=== PATIENT | male | born 1960 | race Caucasian/White ===

== ENCOUNTER → 2019-04-04 08:35 | Outpatient (CLI) | payer OTHER, SELFPAY ==
--- NOTE | 2019-04-04 | DI.MRI.S_ITS ---
PROCEDURE: MR KNEE RT WO CON INDICATIONS: Pain in Unspecified knee TECHNIQUE: Noncontrast sagittal PD fast spin echo and T2 fast spin echo with fat saturation, sagittal 3-D FLASH with fat saturation; coronal T1 spin echo and PD fast spin echo with fat saturation, and axial PD fast spin echo with fat saturation through the knee. COMPARISON: None. FINDINGS: Image quality: Excellent. Menisci: The medial extrusion of the medial meniscus is present. There is degenerative fraying of the free edge of the anterior and posterior horn medial meniscus. Amorphous high signal intensity within the anterior horn, body, and posterior horn medial meniscus is present, demonstrating superior and inferior articular surface extension, indicating severe diffuse degenerative tearing. Amorphous high signal intensity within the anterior horn lateral meniscus is present, demonstrating superior articular surface extension, indicating degenerative tearing. Lateral meniscus demonstrates a discoid configuration. Cruciate ligaments: The anterior and posterior cruciate ligaments appear intact. Multiple intercondylar notch cysts are present superiorly. Medial structures: The medial collateral ligament appears intact, but demonstrates mild surrounding T2 signal elevation. Visualized portions of the pes anserinus tendons appear normal. There is moderate T2 signal lesion within the semimembranosus tendon at the tibial insertion site. No abnormal bursal fluid. Lateral structures: The lateral collateral ligament demonstrates moderate T2 signal elevation within its mid and superior aspects. The long and short heads of the biceps femoris tendon appear intact. The popliteus tendon appears normal. Iliotibial band appears normal. Anterior structures: The quadriceps and patellar tendons appear intact. Patellar alignment is normal. No femoral trochlear dysplasia or ventral trochlear prominence. No edema in the infrapatellar fat pad. Bones and cartilage: No bone marrow contusions or fractures. There is severe tricompartmental periarticular osteophyte formation. There is mild subchondral marrow edema within the weightbearing aspects of the medial femoral condyle and medial tibial plateau. Multiple subchondral cysts within the central tibial plateau as well as the posterior weightbearing aspect of the medial and lateral tibial plateaus. Mild subchondral marrow edema and subchondral cyst formation within the lateral patellar facet. Severe articular cartilage loss diffusely overlies the weightbearing aspect of the medial femoral condyle and medial tibial plateau. Mild articular cartilage loss overlies the weightbearing aspects of the lateral femoral condyle and lateral tibial plateau. Moderate articular cartilage loss overlies the lateral patellar facet. Joint space: There is a moderate knee joint effusion containing multiple small intra-articular loose bodies. Trace Alvarado's cyst. Normal appearing synovial plicae are incidentally noted. IMPRESSION: 1. Tricompartmental osteoarthritis with associated articular cartilage loss. 2. Severe degenerative tearing of the medial meniscus. 3. Discoid lateral meniscus with degenerative tearing and anterior horn. 4. Insertional tendinitis of the semimembranosus. 5. Partial-thickness lateral collateral ligament tearing. 6. MCL strain. 7. Knee joint effusion, multiple small intra-articular loose bodies, and trace Alvarado's cyst. Dictated by: Anna Sims M.D. on 04/06/2019 at 8:52 Approved by: Anna Sims M.D. on 04/06/2019 at 8:57
== END ==
PROVIDERS: Visit Provider Family Medicine
DX: M25.561 Pain in right knee (principal); M17.11 Unilateral primary osteoarthritis, right knee; M23.211 Derangement of anterior horn of medial meniscus due to old tear or injury, right knee; M23.221 Derangement of posterior horn of medial meniscus due to old tear or injury, right knee; M23.241 Derangement of anterior horn of lateral meniscus due to old tear or injury, right knee; M25.461 Effusion, right knee; M76.9 Unspecified enthesopathy, lower limb, excluding foot
CPT/HCPCS: 73721

== ENCOUNTER → 2019-05-20 06:46 | Outpatient (CLI) | payer OTHER, SELFPAY ==
[2019-05-20 08:17] LABS: BUN Creatinine Ratio 24.4 (6-22); Blood Urea Nitrogen 22 mg/dL (9-20); Calcium 9.6 mg/dL (8.4-10.2); Carbon Dioxide 29 mmol/L (22-32); Chloride 104 mmol/L (98-107); Estimated Glomerular Filt Rate > 60.0 mL/min (>60); Glucose 140 mg/dL (70-100); HEMOLYSIS < 15 (0-50); Potassium 4.5 mmol/L (3.4-5.1); Sodium 142 mmol/L (137-145)
[2019-05-20 08:19] LABS: Add Manual Diff / Slide Review NO; Basophils Absolute Auto 0 /uL (0-100); Basophils Percent Auto 0.6 % (0-2); Eosinophils Absolute Auto 300 /uL (0-450); Eosinophils Percent Auto 4.5 % (2-4); Hematocrit 42.8 % (41-53); Hemoglobin 14.6 g/dL (13.5-17.5); Lymphocytes Absolute Auto 1500 /uL (1100-4500); Lymphocytes Percent Auto 22.3 % (25-40); Mean Corpuscular HGB Conc 34.1 % (30-36); Mean Corpuscular Hemoglobin 28.9 PG (26-34); Mean Corpuscular Volume 84.8 fL (80-100); Monocytes Absolute Auto 500 /uL (0-900); Neutrophils Absolute Auto 4200 /uL (1500-7000); Neutrophils Percent Auto 64.6 % (50-75); Platelet Count 217 X10^3/uL (150-400); Red Blood Cell Count 5.04 X10^6/uL (4.5-5.9); Red Cell Distribution Width 14.7 % (11.6-14.8); White Blood Cell Count 6.5 X10^3/uL (4.5-11.0)
[2019-05-20 09:03] LABS: Hemoglobin A1C% w Est Avg Glu 6.6 % (4.0-6.0)
[2019-05-20 09:20] LABS: Appearance Urine UA CLEAR; Bilirubin Urine UA NEGATIVE (NEGATIVE); Color Urine UA YELLOW; Glucose Urine UA NEGATIVE (Negative); Ketones Urine UA NEGATIVE (NEGATIVE); Leukocyte Esterase Urine UA NEGATIVE (NEGATIVE); Nitrite Urine UA NEGATIVE (Negative); Occult Blood Urine UA NEGATIVE (Negative); Protein Urine UA NEGATIVE (Negative); Specific Gravity Urine UA >=1.030 (1.000-1.035); Urobilinogen Urine UA 0.2 E.U./dL (0.2); pH Urine UA 5.5 (4.5-8.0)
[2019-05-20 09:39] LABS: Bacteria Urine Few (2-10); Culture Indicated Urine Cult Not Indicated; Mucus Urine 2+ (Negative); RBC Urine 0-1/HPF (0-5/HPF); WBC Urine 0-1/HPF (0-5/HPF)
== END ==
PROVIDERS: Visit Provider Orthopaedic Surgery
DX: M17.11 Unilateral primary osteoarthritis, right knee (principal); Z01.818 Encounter for other preprocedural examination; R73.9 Hyperglycemia, unspecified; Z01.812 Encounter for preprocedural laboratory examination
CPT/HCPCS: 36415; 80048; 81001; 83036; 85025; 93005

== ENCOUNTER 2019-06-05 11:13 | Inpatient (IN) | payer OTHER, SELFPAY ==
[2019-05-21 08:41] VITALS: BMI 38.3
[2019-06-05] VITALS (17 sets, daily range): BP systolic 124–186; BP diastolic 76–110; PULSE 75–100; RESP 11–20; TEMP 36.2–37; O2SAT 92–98; BMI 38.3
--- NOTE | 2019-06-05 11:13 | DI.RAD.S_ITS ---
PROCEDURE: XR KNEE RT 1TO2V INDICATIONS: TKA TECHNIQUE: 2 view(s) of the knee acquired. COMPARISON: None. FINDINGS: Bones: Patient is status post knee joint arthroplasty. Hardware components are in expected positions. Visualized bony structures are intact. Soft tissues: Overlying postoperative changes are noted. IMPRESSION: Post right total knee arthroplasty changes with anatomic right knee alignment. Dictated by: Ruslan Agrawal M.D. on 06/05/2019 at 14:48 Approved by: Ruslan Agrawal M.D. on 06/05/2019 at 14:49
[2019-06-05] MEDS: CELECOXIB 200 MG CAPSULE PO (12:09)
[2019-06-05] MEDS: ACETAMINOPHEN 325 MG TABLET 975 MG PO ×2 (12:09→21:14)
[2019-06-05] MEDS: PREGABALIN 75 MG CAPSULE PO (12:09)
[2019-06-05] MEDS: LACTATED RINGERS 1,000 ML 42 ML IV (12:11)
[2019-06-05] MEDS: fentaNYL 100 MCG/2 ML INJ 50 MCG IV (12:52)
[2019-06-05] MEDS: MIDAZOLAM 2 MG/2 ML VIAL IV (12:52)
--- NOTE | 2019-06-05 13:07 | SUR.PREOP ---
Block start time [1252] . Monitoring initiated and maintained throughout procedure. Oxygen and medications given per anesthesiologist instructions. Patient remained stable throughout procedure, no adverse reactions noted. Block end time [1303].
[2019-06-05] MEDS: CEFAZOLIN 2 GM/100 ML FROZ.PIGGY IV (13:14)
--- NOTE | 2019-06-05 13:54 | SUR.OPER ---
Supine on padded OR bed. Pillow under head, arms secured on padded armboards <90 degree abduction. Safety belt across torso. Non-operative leg secured with tape over blanket over lower leg. Operative leg secured in [employer] positioner. Foam padded brace at thigh of operative leg.
[2019-06-05] MEDS: BUPIVACAINE 0.25% W/ EPI 30 ML VIAL 60 ML INJ (13:59)
[2019-06-05] MEDS: BUPIVACAINE LIPOSOME 266 MG/20 ML VIAL INJ (14:00)
[2019-06-05] MEDS: MORPHINE 4 MG/ML INJ INJ (14:00)
--- NOTE | 2019-06-05 15:15 | PM.PREOP ---
Pre-operative Note Interval Note History & Physical reviewed/Exam performed by Physician: Yes Changes to H&P: No
--- NOTE | 2019-06-05 15:16 | PM.OP.1 ---
Operative Date/Time/Diagnoses Date of procedure: 06/05/19 Time of procedure: 15:05 Pre-op diagnosis: Right knee osteoarthritis Post-op diagnosis: same Procedure & Clinicians Procedure: Right total knee replacement Same procedure as scheduled: Yes Indications: The patient has had progressively worsening right knee pain with radiographic changes consistent with arthritis. Non-operative management has failed and the patient has requested total knee replacement. The risks, benefits and alternatives to surgery were discussed with the patient prior to proceeding. Risks discussed included, but were not limited to, failure to relieve pain, stiffness, infection, nerve damage, deep venous thrombosis, pulmonary embolism, stroke, coma, heart attack, permanent paralysis and , as well as the potential need for eventual revision of the prosthetic. Surgeon: Travis Scott Hockey Scout: Inga Bernal Click Yes if Unassisted: No Anesthesia Type: General, Peripheral nerve block and Local Operative Notes Findings: Very severe medial and patellofemoral osteoarthritis with relative sparing of the lateral compartment. Closure Type: primary Specimen(s): none sent Prosthetic devices, grafts, tissues, transplants, or devices: Implants used in this procedure were manufactured by the [employer] and [employer] and included the BCS II Journey total knee replacement with a size 8 right Oxinium femoral component, size 7 right non porous tibial base plate, an 11 mm cross-linked polyethylene insert and a 35 mm oval Zeenat II patellar component. Applied: implant(s) Estimated Blood Loss (mL): 50 Blood products transfused: none Tourniquet time (min): 60 Procedure in detail: The patient was seen in the pre-operative area, where the patient identified the right knee as the operative site and this was marked with my initials. The patient received pre-operative antibiotics, and was taken to the operating room and placed on the operative table in the supine position. After satisfactory anesthesia, a registered phlebotomist part time out was performed. The right leg was encircled with a tourniquet about the proximal thigh, and the leg was prepared from the toes to the tourniquet with ChloroPrep in the usual fashion and draped through sterile drapes. The leg was elevated and exsanguinated with Eschmark bandage and the tourniquet inflated to 250 mmHg pressure. The knee was approached through an approximately 18 cm incision centered over the patella and carried into the knee through a medial parapatellar arthrotomy. The anterior osteophytes and soft tissues were removed. The rotational landmarks of Yuki's line and the transepicondylar axis were marked on the femur with electrocautery, and intramedullary guide holes for the femur and tibia were created. The distal femoral cut was made in 6 degrees of valgus using the intramedullary guide at the primary cut setting. The proximal tibial cut was then made using the intramedullary guide, taking 9 mm of bone off the less involved side. The extension gap was checked and the rotation of the femoral component confirmed with the gap balancing system. The anterior, posterior and chamfer cuts were then made. The posterior osteophytes and soft tissues were then removed. The posterior capsule was injected with part of a mixture of 50 ml 0.25% Marcaine mixed with 20 ml Exparel and 4 mg of morphine for post-operative pain control. The remainder of this mixture was injected into the capsule and subcutaneous tissues during cement curing. The tibia was prepared with the rotation set by an extra medullary guide. Trial tibial and femoral components were then placed and the intercondylar notch cut through the femoral trial. Range of motion was 0-135 degrees, with good stability throughout the range. The patella was then cut to accommodate the patellar prosthetic. There was no need for a lateral release. The trials were then removed, and the femoral hole plugged with a bone plug. The bone was prepared with pulsatile lavage, and dried with a sponge. Cement was applied and the final prosthetics placed. Excess cement was removed during and after cement curing. After confirming there was no extruded cement posteriorly, the final tibial insert was placed. The knee was copiously irrigated and the tourniquet deflated. Hemostasis was obtained. The capsule was closed with interrupted # 2 polyester suture. The subcutaneous layer was closed with 3-0 Vicryl, and the skin with a running 3-0 V-Lock suture and SteriStrips. An Aquacel Ag dressing was applied and the patient was taken to recovery having tolerated the procedure well. Complications: none Condition: stable Disposition: PACU Plan for aftercare: The patient will be maintained on a standard total knee replacement protocol with weight bearing as tolerated. The patient will receive aspirin and sequential compression devices for DVT prophylaxis. The patient will be discharged home when safe for the home environment.
--- NOTE | 2019-06-05 15:19 | P.OP_ITS ---
Operative Date/Time/Diagnoses Date of procedure: 06/05/19 Time of procedure: 15:05 Pre-op diagnosis: Right knee osteoarthritis Post-op diagnosis: same Procedure & Clinicians Procedure: Right total knee replacement Same procedure as scheduled: Yes Indications: The patient has had progressively worsening right knee pain with radiographic changes consistent with arthritis. Non-operative management has failed and the patient has requested total knee replacement. The risks, benefits and alternatives to surgery were discussed with the patient prior to proceeding. Risks discussed included, but were not limited to, failure to relieve pain, stiffness, infection, nerve damage, deep venous thrombosis, pulmonary embolism, stroke, coma, heart attack, permanent paralysis and , as well as the potential need for eventual revision of the prosthetic. Surgeon: Travis Scott Hostess Host: Inga Bernal Click Yes if Unassisted: No Anesthesia Type: General, Peripheral nerve block and Local Operative Notes Findings: Very severe medial and patellofemoral osteoarthritis with relative sparing of the lateral compartment. Closure Type: primary Specimen(s): none sent Prosthetic devices, grafts, tissues, transplants, or devices: Implants used in this procedure were manufactured by the [employer] and [employer] and included the BCS II Journey total knee replacement with a size 8 right Oxinium femoral component, size 7 right non porous tibial base plate, an 11 mm cross- linked polyethylene insert and a 35 mm oval Zeenat II patellar component. Applied: implant(s) Estimated Blood Loss (mL): 50 Blood products transfused: none Tourniquet time (min): 60 Procedure in detail: The patient was seen in the pre-operative area, where the p atient identified the right knee as the operative site and this was marked with my initials. The patient received pre-operative antibiotics, and was taken to the operating room and placed on the operative table in the supine position. After satisfactory anesthesia, a time piece repairer out was performed. The right leg was encircled with a tourniquet about the proximal thigh, and the leg was prepared from the toes to the tourniquet with ChloroPrep in the usual fashion and draped through sterile drapes. The leg was elevated and exsanguinated with Eschmark bandage and the tourniquet inflated to 250 mmHg pressure. The knee was approached through an approximately 18 cm incision centered over the patella and carried into the knee through a medial parapatellar arthrotomy. The anterior osteophytes and soft tissues were removed. The rotational landmarks of Ideal's line and the transepicondylar axis were marked on the femur with electrocautery, and intramedullary guide holes for the femur and tibia were created. The distal femoral cut was made in 6 degrees of valgus using the intramedullary guide at the primary cut setting. The proximal tibial cut was then made using the intramedullary guide, taking 9 mm of bone off the less involved side. The extension gap was checked and the rotation of the femoral component confirmed with the gap balancing system. The anterior, posterior and chamfer cuts were then made. The posterior osteophytes and soft tissues were then removed. The posterior capsule was injected with part of a mixture of 50 ml 0.25% Marcaine mixed with 20 ml Exparel and 4 mg of morphine for post-operative pain control. The remainder of this mixture was injected into the capsule and subcutaneous tissues during cement curing. The tibia was prepared with the rotation set by an extra medullary guide. Trial tibial and femoral components were then placed and the intercondylar notch cut through the femoral trial. Range of motion was 0-135 degrees, with good stability throughout the range. The patella was then cut to accommodate the patellar prosthetic. There was no need for a lateral release. The trials were then removed, and the femoral hole plugged with a bone plug. The bone was prepared with pulsatile lavage, and dried with a sponge. Cement was applied and the final prosthetics placed. Excess cement was removed during and after cement curing. After confirming there was no extruded cement posteriorly, the final tibial insert was placed. The knee was copiously irrigated and the tourniquet deflated. Hemostasis was obtained. The capsule was closed with interrupted # 2 polyester suture. The subcutaneous layer was closed with 3-0 Vicryl, and the skin with a running 3-0 V-Lock suture and SteriStrips. An Aquacel Ag dressing was applied and the patient was taken to recovery having tolerated the procedure well. Complications: none Condition: stable Disposition: PACU Plan for aftercare: The patient will be maintained on a standard total knee replacement protocol with weight bearing as tolerated. The patient will receive aspirin and sequential compression devices for DVT prophylaxis. The patient will be discharged home when safe for the home environment.
[2019-06-05] MEDS: HYDROMORPHONE 2 MG INJ 0.5 MG IV ×2 (15:31→15:39)
--- NOTE | 2019-06-05 15:52 | SUR.PHASEI ---
Order obtained for Rx for BP; informed anesthesia that pharmacy is working to make the dosing work with the pyxis. Anesthesia said that he would give the medication. See anesthesia record. Patient dozing intermittently, arouses easily to voice. [id number] Dr. Castro checked back to see if rs impacted BP. No new orders.
[2019-06-05] MEDS: LABETALOL 20 MG/4 ML SYRINGE 10 MG IV (16:12)
--- NOTE | 2019-06-05 16:14 | SUR.PHASEI ---
1610 Called into OR to report BP of 104 and 109 diastolic. Rx given (signed out by anesthesia). Patient dozing, arouses easily and spontaneously.
--- NOTE | 2019-06-05 16:42 | SUR.PHASEI ---
1625 report called to floor, preparing for transfer. Verbalized tolerating pain at 4-5/10. Arouses spontaneously, oriented, asking about his . States that feet are warm enough and declined another warm blanket to feet.
--- NOTE | 2019-06-05 16:53 | SUR.PHASEI ---
1631 to room 212, family in room. Patient drowsy, talking with them, oriented and appropriate. Dressing remains CDI, CMS intact. bed down and locked, call light within reach. SCDs on by CNAs. Stable. Clothing bag to the room.
[2019-06-05] MEDS: LACTATED RINGERS 1,000 ML 125 ML IV (16:59)
--- NOTE | 2019-06-05 17:28 | PC.NURSE ---
Patient is A&O x4, pleasant and cooperative w/ staff and is able to make needs known. Patient is slightly likely due to surgical meds. Patient is resting peacefully with family at bedside. Patient reports josselyn. pain of 5/10 in surgical knee. Patient arrived w/ NC running at 4L and sustaining 95%, this nurse to 3L and patient sustained 96%. Patient req. to remove O2 NC at 1730 while eating dinner. Nurse was agreeable to plan as long as patient sustained a o2 sats WNL and aware we will cont. to monitor on cont. pulse ox. Patient thus far has been sustaining in the 94%. Patient denies any hx of sleep apnea. Ext. are cool to the touch, pulses in BLE are palpable but weak and BUE pulses are weak. Call light w/in reach, bed in low pos. alarm active. Patient aware to use call light w/ needs to use bathroom (mult. reminders given to patient to call for staff assistance, as he has made mult. mentions of getting up).
[2019-06-05] MEDS: ASPIRIN EC 81 MG TABLET PO (21:14)
[2019-06-05] MEDS: DOCUSATE 100 MG CAPSULE PO (21:14)
[2019-06-06] MEDS: LACTATED RINGERS 1,000 ML 125 ML IV (01:54)
[2019-06-06] MEDS: OXYCODONE IR 5 MG TABLET PO ×2 (03:36→07:37)
[2019-06-06 03:44] VITALS: PULSE 90; RESP 18; TEMP 36.8; O2SAT 94
--- NOTE | 2019-06-06 05:06 | PC.NURSE ---
Addendum entered by Jose Rivero R.N. 06/06/19 05:45: Pt was on 2 liters O2 through the night. But now on RA at 95%. Original Note: Pt is AxO x 4, VSS, Lung sounds clear bilaterally. Pt is up using the bathroom w/ 1 person assist. Pt having knee pain this night, saying they are spasms, 8/10. Pt was on 2liters O2 NC. CMS is intact, pt denies pain or nausea. Educated about use of IS, and SCD's are on.
[2019-06-06 06:15] LABS: Hematocrit 37.2 % (41-53); Hemoglobin 12.3 g/dL (13.5-17.5)
[2019-06-06] MEDS: hydrOXYzine pamoate 25 MG CAPSULE PO (07:37)
[2019-06-06 07:45] VITALS: BP 143/93; PULSE 88; RESP 16; TEMP 36.8; O2SAT 97
[2019-06-06 09:19] VITALS: O2SAT 97
[2019-06-06] MEDS: AMLODIPINE 5 MG TABLET 10 MG PO (09:22)
[2019-06-06] MEDS: LOSARTAN 50 MG TABLET 100 MG PO (09:22)
[2019-06-06] MEDS: ATORVASTATIN 20 MG TABLET 40 MG PO (09:22)
[2019-06-06] MEDS: ACETAMINOPHEN 325 MG TABLET 975 MG PO (09:23)
[2019-06-06] MEDS: DOCUSATE 100 MG CAPSULE PO (09:23)
[2019-06-06] MEDS: ASPIRIN EC 81 MG TABLET PO (09:23)
[2019-06-06] MEDS: MELOXICAM 7.5 MG TABLET 15 MG PO (09:24)
--- NOTE | 2019-06-06 09:40 | PM.DS.1 ---
History of Present Illness Date Patient Seen: 06/06/19 Time Patient Seen: 09:41 Chief complaint: [id number] Right Total Knee Arthroplasty Narrative: The history and physical are contained in the chart in a previously completed note. Please refer to that note for this information. Discharge Providers Date of admission: 06/05/19 11:13 Discharge Date: 06/06/19 Consults: 06/05/19 16:43 Consult to Discharge Planning Routine Comment: Consult to Physical Therapy Evaluate & Treat Comment: Physician Instructions: postop TKA protocol Discharge provider: Travis Scott MD Summary Discharge Diagnosis: 1. Right knee osteoarthritis 2. Post hemorrhagic anemia Hospital Course: The patient was admitted to the hospital and taken directly to the operating room on June 05, 2019. He underwent a right total knee replacement without complication. On postoperative day 1 he was comfortable with good pain control. He had walked in the hallway over the night before. At the time of this dictation it is anticipated he will be ready for discharge today. Status at Discharge Cognitive/behavioral status at discharge: oriented Functional status at discharge: uses cane/walker Overall status at discharge: patient is progressing back to baseline Time Spent with Patient Less than 30 minutes Exam Vital Signs (past 8 hours): - 06/06/19 03:44 06/06/19 07:45 06/06/19 09:19 Temperature 98.2 F 98.3 F Pulse Rate 90 88 Respiratory Rate 18 16 Blood Pressure 143/93 H Pulse Oximetry 94 97 97 Fraction of Inspired Oxygen 21 Oxygen Delivery Method Room Air Oxygen Flow Rate 0 Narrative Exam Narrative: Right knee wound is dressed with no drainage on the bandage. Calf is soft. Light touch and motion are intact in the right lower extremity. Objective Labs Result Diagrams: 06/06/19 05:44 Labs: Laboratory Results - last 24 hr 06/06/19 05:44 Hgb 12.3 L Hct 37.2 L Discharge Plan Discharge Plan Patient Disposition: Home Discharge Med Rec/Prescriptions Prescriptions: New acetaminophen 325 mg Tablet 975 mg PO TID 30 Days Qty: 270 RF: 0 aspirin 81 mg Tablet,Delayed Release (Dr/Ec) 81 mg PO BID 42 Days Qty: 84 RF: 0 oxycodone 5 mg Tablet 5 mg PO Q3HR PRN (Reason: Pain, Moderate (4-6)) Qty: 40 RF: 0 hydroxyzine pamoate 25 mg Capsule 25 mg PO Q6HR PRN (Reason: Nausea) Qty: 40 RF: 0 Continued atorvastatin 40 mg Tablet 40 mg PO QAM RF: 0 meloxicam 15 mg Tablet 15 mg PO DAILY RF: 0 amlodipine 10 mg Tablet 10 mg PO DAILY RF: 0 losartan 100 mg Tablet 100 mg PO DAILY RF: 0 Discontinued ibuprofen 200 mg Tablet 2 - 3 tab PO DAILY PRN (Reason: Pain) RF: 0 Follow up/Referrals: Travis Scott MD [Physician] - 3-5 Days Provider Discharge Instructions Diet: Diet as Tolerated and Regular Activity: You may bear weight as tolerated on your right leg. Cold/Heat Therapy: Apply ice to the right knee for 15 minutes of every hour as necessary for pain relief. Skin/Wound/Dressing Care Report to your healthcare provider any signs of infection, such as:: chills, fever, night sweats, increased pain, unusual drainage and unusual redness Dressing: You may remove the Nhan wrap 3 days after surgery. You may shower with the deeper dressing in place. Leave the deeper dressing in place until your postoperative follow-up. If the central strip of the deeper dressing becomes saturated with either water or blood please call the office. Visit Report/Discharge Packet Instructions: DI for Knee Replacement Stand Alone Forms: Surgery Discharge Discharge Data Attending Provider: Travis Scott Admit Date/Time: 06/05/19 11:13 Quality VTE Deep Vein Thrombosis/Pulmonary Embolism Present on Admission: No
--- NOTE | 2019-06-06 10:51 | PT.IIE ---
Current Diagnoses Unilateral primary osteoarthritis, right knee (06/05/19) Surgery Performed Operation Date: 06/05/19 12:45 Actual Procedures p Total Knee Arthroplasty(Right) - Travis Scott MD Surgical History (Last Updated 05/21/19 @ 09:16 by Lisa Ramirez RN) S/P cervical spinal fusion (Acute ~2000) Medical History (Last Updated 05/21/19 @ 09:16 by Lisa Ramirez RN) Arthritis (Acute) Edema (Acute) HLD (hyperlipidemia) (Acute) HTN (hypertension) (Acute) Hearing loss (Acute) Numbness and tingling in both hands (Acute) Osteoarthritis (Acute) Physical Therapy Inpatient Evaluation/Re-Eval M1 PT/OT-IP Prior Functional Status Start: 06/06/19 13:26 Freq: NEEDED Status: Discharge Protocol: Document 06/06/19 10:51 AB (Rec: 06/06/19 13:36 AB [id number]) Medical Review Prior Functional Status Medical History Reviewed Yes Communication able to make needs known Mobility and Gait pt stated that he is independent with all mobilities and ambulation without AD indoors but uses a SPC outdoors although does not use one at work Social History Household Members spouse Living Arrangements House Number of Floors (Floors) One Floor Number of Stairs To Enter/Railing? 2 steps to enter with L rail Home Environment High Toilet Walk in Shower Home Equipment Front Wheel Walker Straight Cane Raised Toilet Seat Without Armrests Grab Bars In Shower Employment Status Aerospace Manager Employed M2 PT-IP Current Condition Start: 06/06/19 13:26 Freq: NEEDED Status: Discharge Protocol: Document 06/06/19 10:51 AB (Rec: 06/06/19 13:36 AB [id number]) Physical Therapy Current Condition Current Condition Evaluation Date 06/06/19 Treatment Diagnosis s/p R TKA; difficulty in walking Onset Date 06/05/19 Weight Bearing Status Weight Bearing Status Weight Bear as Tolerated M3 PT-IP Subjective Start: 06/06/19 13:26 Freq: NEEDED Status: Discharge Protocol: Document 06/06/19 10:51 AB (Rec: 06/06/19 13:36 AB [id number]) Subjective Physical Therapy Visit Type Type Initial Evaluation Visit Start Time 10:51 Visit Stop Time 11:53 Total Visit Minutes 62 Number of SECOND CRUSHER Visits 0 Physical Therapy Visit Comments Patient Comments pt agreeable to do PT Therapy Pain Assessment Pain When Pain Assessed At Rest Pain Present Pain Present Pain Reported Location right knee Intensity 5 Scale Used Numeric (1 - 10) Pain Behaviors Guarding Holding Area Pain Management Techniques Apply Cold Re-positioning Timing of Activity with Medications M4 PT-IP Mobility and Gait Start: 06/06/19 13:26 Freq: NEEDED Status: Discharge Protocol: Document 06/06/19 10:51 AB (Rec: 06/06/19 13:36 AB [id number]) PT-Bed Mobility Assessment Supine to Sit Supine to Sit Minimal Assistance 1 Person Assistance Sit to Supine Sit to Supine Minimal Assistance 1 Person Assistance PT-Transfer Assessment Sit to and From Stand Sit to and from Stand Contact Guard Assistance Equipment Transfer Assistive Device Gait Belt Front Wheeled Walker Orthotic/Prosthetic Devices or Brace: No Gait Assessment Gait Gait Assistance Required: Contact Guard Assist Distance (Feet) 100 Able to Maintain Weight Bearing Status Yes During Gait Assistive Devices Assistive Device Gait Belt Front Wheeled Walker Orthotic/Prosthetic Devices or Brace: No Gait Deviations General Gait Pattern Antalgic Decreased Stride Length Decreased Feet Clearance Factors Limiting Gait Function Factors Limiting Gait Function Decreased Activity Tolerance Decreased Sensation Decreased Strength Limited Range of Motion Pain Poor Balance Comments Gait Comments caregiver training conducted. educated spouse on how to use safety belt and how to assist pt with bed mobility, transfers and ambulation. spouse was able to assist pt safely. Stair Climbing Assessment Evaluation Level of Assist On Stairs Minimal Assistance 1 Person Assistance Devices Stair Climbing Assistive Devices Left Railing Technique/Endurance Stair Climbing Direction Ascend and Descend Stair Climbing Technique Step to Step Number of Steps Climbed 3 Query Text: Stair Climbing Set # Repetitions (reps) 1 Comments Stair Climbing Comments caregiver training conducted with stair climbing. pt's spouse was able to assist pt safely. PT-Balance Assessment Sitting Balance and Reactions Static Sitting Balance Ability Good Dynamic Sitting Balance Ability Good Standing Balance and Reactions Static Standing Balance Ability Fair Dynamic Standing Balance Ability Fair Device Used FWW M5 PT-IP Objective Assessments Start: 06/06/19 13:26 Freq: NEEDED Status: Discharge Protocol: Document 06/06/19 10:51 AB (Rec: 06/06/19 13:36 AB [id number]) Orientation Orientation/Cognition Level of Alertness Alert Orientation Name Age Birthday Month Date Year Day of Week Place Situation Language Function Ability No Deficits Noted Safety Awareness Understands Safety Issues Memory Description No Deficits Noted Gross Range of Motion Lower Extremity ROM Assessment Right Impaired Impairments R knee flexion ~ 70 deg Strength Lower Extremity Strength Assessment Left Impaired Hip 3-/5 Knee 3-/5 Coordination Assessment Gross Coordination Gross Coordination WNL Sensation Assessment Sensation Gross Sensation WNL Muscle Tone Muscle Tone WNL Yes M6 PT-IP Treatment Start: 06/06/19 13:26 Freq: NEEDED Status: Discharge Protocol: Document 06/06/19 10:51 AB (Rec: 06/06/19 13:36 AB [id number]) Physical Therapy Treatment Exercises Exercises Heel Slides Education Education Provided Precautions Weight Bearing Status Post-Op Packet Safety M7 PT-IP Assessment and Plan Start: 06/06/19 13:26 Freq: NEEDED Status: Discharge Protocol: Document 06/06/19 10:51 AB (Rec: 06/06/19 13:36 AB [id number]) PT Summary Assessment and Plan Potential Rehabilitation Potential Good Status of Condition at Evaluation Stable Summary Impairments Pain ROM Strength Balance Coordination Sensation Tone Cognition Bed Mobility Transfers Gait Activity Tolerance Assessment Summary caregiver training conducted and pt's spouse was able to assist pt safely. pt plans to go home today and pt stated that he is set up for outpt PT . Goals Bed Mobility Goal Independent Transfer Goal Independent Front Wheeled Walker Gait Goal Independent Front Wheel Walker Gait Distance 200 Other Goals up/down 2 steps L rail SBA Days to Meet Goals 3 Frequency of Treatment Frequency Of Treatment Twice a Day Treatment Plan Physical Therapy Treatment Plan Bed Mobility Training Transfer Training Gait Training Therapeutic Exercise Balance Retraining Post Op Education Discharge Planning Hot or Cold Pack Neuromuscular Re-ed Coordination Retraining Manual Therapy Other Recommendations and Next Treatment ambulation, stair climbing Focus Recommendations To Nursing Amount of Assist Needed 1 Person Assist Discharge Recommendations PT Discharge Recommendations Home with Assistance Outpatient PT
[2019-06-06 12:00] VITALS: BP 112/73; PULSE 96; RESP 16; TEMP 37; O2SAT 95
--- NOTE | 2019-06-06 14:25 | CM.DANOTE ---
Discharge Planning/Care Management DCP: assessment: case received and discussed in Team Rounds. PT was to see pt today prior to consideration of d/c home. Pt is a 58 year old male who admitted yesterday for a planned R TKA: Surgeon: Dr. Scott. Payer: Lauryn Gutierrez. Pt indicated in his pre-op phone assessment that he planned to go home at d/c. Went to room to check in with pt. Note that pt has already left for home. Review of PT note shows that Caridad did see pt and his Silvana or jade and caregiver training. Pt did well and was cleared for the home setting with Silvana's supportive assist by PT. Pt will follow up in clinic with Dr. Scott per protocol set up prior to admission by the ortho office. CM Discharge Assessment Start: 06/06/19 14:23 Freq: Status: Discharge Protocol: Document 06/06/19 14:23 ITV (Rec: 06/06/19 14:24 ITV [id number]) Discharge Planning Assessment Advance Directives? No: Declines further information History Provided By Medical Record Prior Living Arrangements House Household Members spouse Independent with ADL's Yes: SP cane outdoors Is patient alert and oriented? Yes Discharge Plan Home Review Status In Process Pre-Anesthesia Assessment Start: 05/21/19 08:41 Freq: Status: Discharge Protocol: Document 05/21/19 08:41 CAB (Rec: 05/21/19 09:27 CAB [id number]) Pre-Anesthesia Assessment Patient Also Known As Vasquez (AKA) Patient Information Reviewed Via Phone Assessment Assessment Completed With Patient Diagnostic Results BMP/CMP CBC EKG Comment Outside labs/EKG @ [facility] 05/20/19 Primary Care Provider Iram Le Seen Specialist in Last 12 Months Yes Specialist Seen Orthopedist Primary Language Lao Electric Sign Assembler Required No Height 180.34 cm Weight 124.738 kg Body Mass Index (BMI) 38.3 Hearing Ability Normal Visual Assist Glasses Dentition Type Teeth, Natural Present Teeth, Missing Barriers to Learning None Other Aids No Hx Anesthesia Reactions No Hx Family Anesthesia Reaction No Hx Malignant Hyperthermia No Hx Blood Transfusions No Anesthesia Review Requested No Video Library Assistant No alcohol intake current alcohol intake frequency 0-2 drinks per day Smoking Status Never smoker Substance Use Type does not use Comment CBD cream Pain Present Pain Reported Musculoskeletal Symptoms Abnormal Gait Difficulty Walking Joint Pain Muscle Cramps Numbness History of Falling (Recent or History of Yes ) Patient is completely paralyzed or No completely immobile Prosthesis or Orthotic Device Cane Mental Status Oriented to own ability Is patient on oxygen? No Does patient have SARMIENTO/SOB No Hx Sleep Apnea No Hx Chest Pain No Hx SOB No Hx Syncope or Dizziness No Anti-Coagulant Therapy No Has a Teletype Telegrapher No Cardiac Testing No Hx Pacemaker/ICD No Pacemaker Rep Required? No Cardiac Clearance Received Not Applicable Diet Type At Home Regular dysphagia No Bladder Pattern Nocturia Urinary Catheter Present No Hx Urinary Self Catheterization No Diabetes No HgbA1C 6.6 Date 05/20/19 Hx Drug Resistant Organism No Presence of External or Internal Medical Yes: Cervical hardware Devices Have you traveled outside the [facility] in the last 30 days? Marital Status Lives With spouse Prior Living Arrangements House Number of Floors (Floors) One Floor Support System Spouse Does the Patient Have Assistance After Yes Surgery Patient Discharge Plan Description Return Home Comment Pt same day or next day length of stay per surgeon's office Feels Safe in Current Environment Yes Been Physically Hurt or Threatened By a No Person in Current Environment Do you have thoughts of harming yourself None or others? Are you currently considering suicide? No Do you have a plan to hurt yourself or No Plan others? Do You Have Any Spiritual Beliefs That No May Affect Your HC Choices? Do You Have Any Cultural Practices That No May Affect Your HC Choices? Spiritual Referral None Comment Prostestant Who Can We Speak to About Patient's Care Family, friends Identifying Code for Release of Patient Declines to issue Information Health Care Proxy/Next of Kin Silvana () Health Care Proxy Emergency Contact Name Silvana () Emergency Contact Advance Directives? No: Declines further information Power of Carpet Measurer Name Silvana () Power of Carpet Measurer PAC Instructions Durable medical equipment Medications to take/avoid Nasal antibiotic No ETOH/petroleum product on skin DOS NPO Post-op transportation Pre-surgical wash Sturdy shoes/comfortable clothes Do not bring valuables and remove jewelry
== END 2019-06-06 12:40 | disposition home or self-care (01) | DRG 470 ==
PROVIDERS: Admitting Provider Orthopaedic Surgery; Visit Provider Orthopaedic Surgery
PROC: 0SRC0JZ Replacement of Right Knee Joint with Synthetic Substitute, Open Approach (ICD-10-PCS; CPT 27447; principal; 2019-06-05 12:45)
DX: M17.11 Unilateral primary osteoarthritis, right knee (principal); I10 Essential (primary) hypertension; E66.9 Obesity, unspecified; Z68.39 Body mass index [BMI] 39.0-39.9, adult
CPT/HCPCS: 36415; 64447; 73560; 85014; 85018; 93005; 93010; 94760; 97161; 97530; C1776; C9290; J0690; J1100; J1170; J2250; J2270; J2405; J2704; J3010